=== PATIENT | male | born 1975 | race Caucasian/White ===

== ENCOUNTER 2021-07-15 01:52 | Emergency (ER) | payer MEDICAID, SELFPAY ==
[2021-07-15] VITALS (9 sets, daily range): BP systolic 103–165; BP diastolic 47–83; PULSE 93–121; RESP 20–30; TEMP 37.2–39; O2SAT 96–99; BMI 25.0
--- NOTE | 2021-07-15 01:51 | ECG_ITS ---
APPROVED REPORT Exam: Resting ECG HR:120 bpm ECG Measurements Heart Rate 120 AXES OH 144 P 76 QRSd 92 QRS -8 QT 334 T 140 QTc [address] & T wave abnormality, consider inferolateral ischemia Abnormal ECG Electronically signed by : Zeke Rader MD 07/16/2021 09:19:42
--- NOTE | 2021-07-15 01:56 | XR_ITS ---
PROCEDURE INFORMATION: Exam: XR Chest Exam date and time: 07/15/2021 1:56 AM Age: 45 years old Clinical indication: Fever TECHNIQUE: Imaging protocol: XR of the chest. Views: 1 view. COMPARISON: No relevant prior studies available. FINDINGS: Lungs: Diffuse interstitial prominence with scattered bilateral perihilar opacities, left greater than right. Appearance is favored to represent pulmonary edema. More conspicuous left retrocardiac consolidation could be atelectasis or pneumonia. Pleural spaces: Small to moderate left and small right pleural effusions. No pneumothorax. Heart/Mediastinum: Heart size exaggerated by technique, but likely mildly enlarged. Aortic atherosclerosis. Bones/joints: Osteopenia. Scattered degenerative changes. IMPRESSION: 1. Diffuse interstitial prominence with scattered perihilar opacities, suggesting [id number] pulmonary edema. 2. Patchy airspace consolidation in the left retrocardiac region could be atelectasis or pneumonia. 3. Small to moderate left and small right pleural effusions.
[2021-07-15 02:24] LABS: Basophils # 0.1 K/mm3 (0-0.2); Basophils % 1.2 % (0.1-2.0); Eosinophils # 0.1 K/mm3 (0.0-0.4); Eosinophils % 0.7 % (0.1-12.0); Hematocrit 31.5 % (42.0-52.0); Hemoglobin 9.7 g/dL (14.1-18.0); Lymphocytes # 0.5 K/mm3 (0.7-4.5); Mean Corpuscular HGB Conc 30.8 g/dL (31.8-35.4); Mean Corpuscular Hemoglobin 28.9 pg (27.0-31.2); Mean Corpuscular Volume 93.8 fl (80-94); Monocytes # 0.2 K/mm3 (0.1-1.0); Monocytes % 2.2 % (1.7-9.3); Neutrophils # 7.2 K/mm3 (1.8-7.8); Neutrophils % 89.9 % (37.0-80.0); Platelet Count 205 K/mm3 (142-424); Red Blood Count 3.36 M/mm3 (4.60-6.20); Red Cell Distribution Width 16.9 % (11.5-17.5); White Blood Count 8.1 K/mm3 (4.8-10.8)
[2021-07-15 02:26] LABS: Coronavirus 19, PCR Not Detected (NotDetected); Influenza A, PCR Not Detected (NotDetected); Influenza B, PCR Not Detected (NotDetected)
[2021-07-15 02:32] LABS: MANUAL DIFFERENTIAL MANUAL DIFFERENTIAL (MANUAL DIFF)
[2021-07-15 02:33] LABS: Hypochromasia 1+; Lymphocytes % 6 % (10-50); Monocytes % 1 % (2-9); Neutrophils % 83 % (42-76); Platelet Estimate Normal; Total Cells Counted 100
[2021-07-15 02:34] LABS: Anisocytosis 1+; Rouleaux 1+
[2021-07-15 02:37] LABS: Alanine Aminotransferase 18 U/L (12-78); Albumin Level 3.5 g/dl (3.5-5.0); Albumin/Globulin Ratio 0.9 (1.1-1.8); Alkaline Phosphatase 230 U/L (38-126); Anion Gap 8.9 mEq/L (5-15); Aspartate Amino Transferase 34 U/L (17-59); Blood Urea Nitrogen 17 mg/dl (9-20); Calcium 9.1 mg/dl (8.4-10.2); Carbon Dioxide 38 mmol/L (22.0-30.0); Chloride 90 mmol/L (98-107); Creatinine Clearance Estimated 39 mL/min (50-200); Estimated Glomerular Filt Rate 24 ml/min (>60); GFR (African American) 28 ML/MIN (>60); Globulin 3.7 g/dL (1.3-3.2); Glucose 156 mg/dl (74-100); Lactic Acid 1.8 mmol/L (0.7-2.1); Potassium 3.9 mmoL/L (3.5-5.1); Sodium 133 mmol/L (136-145); Total Protein,Serum 7.2 g/dl (6.3-8.2)
[2021-07-15 02:42] LABS: C-Reactive Protein 21.2 mg/L (0-4)
[2021-07-15 02:51] LABS: Troponin I 0.04 ng/ml (0.00-0.034)
--- NOTE | 2021-07-15 02:52 | [facility].EDFEV ---
ED Disposition Clinical Impression: ESRD (end stage renal disease) on dialysis, SIRS (systemic inflammatory response syndrome) Cellulitis Qualifiers: Site of cellulitis: extremity Site of cellulitis of extremity: lower extremity Laterality: right Qualified Code(s): L03.115 - Cellulitis of right lower limb Disposition: Home, Self-Care Condition on Discharge: Fair Instructions: DI for Fever (Symptom) -- Adult Additional Instructions: use meds and f/u at [facility] Prescriptions: clindamycin HCL [Clindamycin HCl] 300 mg PO TID #30 cap Prescription Printed Cefdinir [Omnicef 300mg Capsule] 300 mg PO DAILY #10 cap Prescription Printed Referrals: Raheem High [Primary Care Provider] - - Critical Care Critical Care Time: No Attestation: On 07/15/21, the high probability of a clinically significant, sudden or life threatening deterioration of the following system(s) required my full and direct attention, intervention and personal management. The time I documented below is in addition to time spent performing reported procedures but includes the following listed in this critical care notation. Medical Decision Making - Medical Records Medical records reviewed: Yes: I reviewed the patient's medical records. - Power Inquiry Pt receiving controlled substance: No Vital Signs: 07/15/21 01:45 07/15/21 02:06 07/15/21 02:30 Temperature 102.2 F H Temperature Source Rectal Pulse Rate 121 H 110 H Pulse Rate [Right] 119 H Respiratory Rate 22 30 H 29 H Blood Pressure 139/83 158/74 H Blood Pressure [Right Arm] 165/80 H Blood Pressure Mean 101 102 Blood Pressure Mean [Right Arm] 108 02 Sat by Pulse Oximetry 96 98 97 Oxygen Delivery Method Nasal Cannula Nasal Cannula Oxygen Flow Rate (LPM) 2 2 - Lab Data Lab results reviewed: Yes: I reviewed the patient's lab results. Lab Results 07/15/21 01:50: WBC 8.1, RBC 3.36 L, Hgb 9.7 L, Hct 31.5 L, MCV 93.8, MCH 28.9, MCHC 30.8 L, RDW 16.9, Plt Count 205, MPV 8.0, Neut % (Auto) 89.9 H, Lymph % (Auto) 6.0 L, [place] % (Auto) 2.2, Eos % (Auto) 0.7, Baso % (Auto) 1.2, Neut # (Auto) 7.2, Lymph # (Auto) 0.5 L, [place] # (Auto) 0.2, Eos # (Auto) 0.1, Baso # (Auto) 0.1, Total Counted 100, Neutrophils % (Manual) 83 H, Band Neutrophils % 10.0 H, Lymphocytes % (Manual) 6 L, Monocytes % (Manual) 1 L, Platelet Estimate Normal, Hypochromasia 1+, Anisocytosis 1+, Rouleaux 1+, ESR 125 H 07/15/21 01:50: Sodium 133 L, Potassium 3.9, Chloride 90 L, Carbon Dioxide 38 H, Anion Gap 8.9, BUN 17, Creatinine 2.90 H, Estimated Creat Clear 39, Estimated GFR 24 L, Est GFR ( Amer) 28 L, Glucose 156 H, Calcium 9.1, Total Bilirubin 1.0, AST 34, ALT 18, Alkaline Phosphatase 230 H, Troponin I 0.04 H, C-Reactive Protein 21.2 H, Total Protein 7.2, Albumin 3.5, Globulin 3.7 H, Albumin/Globulin Ratio 0.9 L, Procalcitonin 2.44 H 07/15/21 01:50: Lactate 1.8 07/15/21 01:50: SARS-CoV-2 (PCR) Not detected, Influenza A Untype (PCR) Not detected, Influenza Type B (PCR) Not detected Result diagrams: 07/15/21 01:50 07/15/21 01:50 Orders (Tests/Meds): ED MEDICATIONS Generic Name Dose Route Start Last Admin Trade Name Freq PRN Reason Stop Dose Admin Sodium Chloride 1,000 mls @ 999 mls/hr 07/15/21 02:00 07/15/21 01:57 Sod Chlor 0.9% 1000ml Bag IV 07/15/21 03:00 999 mls/hr .Q1H1M SANDRA Administration Ceftriaxone Sodium 1 gm/ 50 mls @ 100 mls/hr 07/15/21 03:00 07/15/21 03:00 Sodium Chloride IV 07/29/21 02:59 100 mls/hr Q24H SANDRA Administration Discontinued Medications Generic Name Dose Route Start Last Admin Trade Name Freq PRN Reason Stop Dose Admin Acetaminophen 650 mg 07/15/21 01:47 07/15/21 01:57 Acetaminophen 650mg Suppository RC 07/15/21 01:48 650 mg ONCE ONE Administration Ondansetron HCl 4 mg 07/15/21 01:47 07/15/21 01:57 Ondansetron 4mg/2ml Vial IV 07/15/21 01:48 4 mg ONCE ONE Administration ORDERS Category Date Time Status Chest XR -- p
[2021-07-15 02:56] LABS: Procalcitonin 2.44 ng/mL (0.0-2.0)
[2021-07-15 03:02] LABS: Erythrocyte Sedimentation Rate 125 mm/hr (0-15)
--- NOTE | 2021-07-15 03:44 | PC.NURSE ---
[facility] unable to transfer pt back to [facility] was given permission to call [facility]. spoke with Lucho Patiño at [facility] and they have agreed to transfer pt back to [facility]
== END 2021-07-15 04:21 | disposition home or self-care (01) ==
PROVIDERS: Emergency Provider Emergency Medicine; PCP Family Medicine
DX: L03.115 Cellulitis of right lower limb (principal); N18.6 End stage renal disease; R65.10 Systemic inflammatory response syndrome (SIRS) of non-infectious origin without acute organ dysfunction; Z20.822 Contact with and (suspected) exposure to COVID-19
CPT/HCPCS: 71045; 80053; 83605; 84145; 84484; 85007; 85025; 85651; 86140; 87040; 87077; 87186; 93005; 96365; 96367; 99284; C9803; J2405; U0003; U0005

== ENCOUNTER → 2021-07-21 12:31 | Outpatient (CLI) | payer MEDICAID, SELFPAY ==
--- NOTE | 2021-07-21 12:55 | CA_ITS ---
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 Patient denies trauma. Patient was scanned in ambulance stretcher with limited mobility. Risk Factors Current Smoker DM, HTN, HLD Vein Imaging CFV (R): compressive, spontaneous, phasic, augmentation FEM (R): compressive, spontaneous, phasic, augmentation POP (R): compressive, spontaneous, phasic, augmentation PTV (R): Compressible GSV (R): Compressible Findings No evidence of DVT or superficial thrombophlebitis in the veins scanned of the right lower extremity. Enlarge rt inguinal node at 4x2cm Subq edema in leg Conclusion No evidence of DVT or superficial thrombophlebitis in the veins scanned of the right lower extremity. Enlarge rt inguinal node at 4x2cm Subq edema in leg Electronically signed by : Kam Ko MD 07/25/2021 09:24:57
== END ==
PROVIDERS: PCP Nurse Practitioner Family; Visit Provider Family Medicine
DX: R22.41 Localized swelling, mass and lump, right lower limb (principal)
CPT/HCPCS: 93971

== ENCOUNTER 2022-01-31 08:19 | Outpatient (CLI) | payer MEDICARE, MEDICAID, SELFPAY ==
[2022-01-31] VITALS (10 sets, daily range): BP systolic 131–167; BP diastolic 55–77; PULSE 65–81; RESP 16; TEMP 35.9–36.7; O2SAT 97–98; BMI 24.4
[2022-01-31 09:12] LABS: Hematocrit 28.6 % (42.0-52.0); Hemoglobin 8.9 g/dL (14.1-18.0)
--- NOTE | 2022-01-31 11:24 | PC.NURSE ---
1120-BLOOD TRANSFUSION STARTED AT 100 ML/HR AT THIS TIME.
--- NOTE | 2022-01-31 12:09 | PC.NURSE ---
1150 - INCREASED RATE TO 150 ML/HR AT THIS TIME.
--- NOTE | 2022-01-31 13:01 | PC.NURSE ---
1220-INCREASED RATE TO 200 ML/HR AT THIS TIME.
[2022-01-31 14:42] LABS: Hematocrit 28.6 % (42.0-52.0); Hemoglobin 9.1 g/dL (14.1-18.0)
== END 2022-01-31 14:40 | disposition home or self-care (01) ==
LOC: INF 08:21
PROVIDERS: PCP Nurse Practitioner Family; Visit Provider Family Medicine
DX: D64.9 Anemia, unspecified (principal)
CPT/HCPCS: 36415; 36430; 85014; 85018; 86850; P9016